=== PATIENT | male | born 1940 | race Caucasian/White ===

== ENCOUNTER 2017-05-11 00:57 | Day surgery (SDC) | payer MEDICARE, OTHER ==
[~2017-05-11] VITALS: Ht 185.4 cm; Wt 90.3 kg
[~2017-05-11 00:57] MED LIST: ASCO-182 PO; ASPI-663 PO; ATOR10TA65 PO; AZIT-1 PO; CALC-515 PO; CALC625T80 PO; CHOL10005 PO; CIP500 PO; DOC100 PO; FLU60SYR30 IM ONLY; GOLYTE PO; IBUP-1687 PO; LOR5 PO; LOR75 PO; MULT-28 PO; NIT100 PO; OMEG500C7 PO; PER PO; PHENA200 PO; PNEI IJ; PNEU0.5D3 IM; PSYL0.5241 PO; TAM4 PO; ZINC50TA2 PO; [UNRECOGNIZED DRUG - CODE] PO
[2017-05-11 06:05] VITALS: BP 157/90
[2017-05-11] MEDS ORDERED: LIDOCAINE/SOD BICARB 8.4% SYR ID ONE (06:30)
[2017-05-11] MEDS ORDERED: MIDAZOLAM 2 MG/2 ML VIAL IVP PRN (06:30)
[2017-05-11] MEDS ORDERED: NORMOSOL R SOLN(*) 1000 ML BAG 1,000 ML IV PRN (06:30)
[2017-05-11] MEDS ORDERED: LIDOCAINE MPF 1% 5 ML VIAL ONE (07:18)
[2017-05-11] MEDS ORDERED: PROPOFOL EMUL(*) 10MG/ML 20 ML 40 ML ONE (07:18)
[2017-05-11 07:51] VITALS: BP 93/68
[2017-05-11 08:00] VITALS: BP 94/71
--- NOTE | 2017-05-11 08:04 | Short(Outpt) Discharge Summary ---
Discharge Summary Reason for Hosp/Final Diag: (1) Family history of malignant neoplasm of gastrointestinal tract Hospital Course & Plan: Colonoscopy with polypectomy x1 completed without problems. Departure Discharge to: Home, Self Care Discharge Instructions Home Meds Active Scripts Peg/Electrolytes (GOLYTELY SOLUTION) 4,000 Ml Soln, 1 GAL PO ONCE, #1 GAL 0 Refills Prov:NURY SINHA MD 03/29/17 Reported Medications Calcium Carbonate (TUMS) 200 Mg Tab.chew, 200 MG PO PRN, TAB.CHEW 05/04/17 Zinc Amino Acid Chelate (ZINC) 50 Mg Tablet, 50 MG PO PRN 05/04/17 Ascorbic Acid (VITAMIN C) 500 Mg Tablet, 500 MG PO PRN, TAB 05/04/17 Multivits,Ca,Min/Iron/FA/Lycop (Centrum Men's Tablet) 1 Each Tablet, 1 TAB PO WEEKLY 05/04/17 Cholecalciferol (Vitamin D3) (VITAMIN D3) 1,000 Unit Tablet, 1000 UNIT PO 3XW, TAB 05/04/17 Calcium Polycarbophil (FIBER TABS) 625 Mg Tablet, 625 MG PO BID 05/04/17 Ibuprofen (ADVIL) 200 Mg Tablet, 1 TAB PO TID Y for PAIN 06/05/14 Discontinued Reported Medications [place]-3 Fatty Acids (FISH OIL) 500 Mg Capsule, 500 MG PO DAILY, CAPSULE 07/25/15 Psyllium Husk (METAMUCIL) 0.52 Gm Capsule, 1 CAP PO, CAPSULE 06/05/14 Diet: Regular Activity: As Tolerated Special Instructions: Your colonoscopy was completed without any problems and your prep was excellent (Good Job!!). I removed a single small polyp from your colon. My office will call you in the next week to let you know what the polyp is but, in any case, I recommend 1 more colonoscopy in 5 years for screening. NURY SINHA MD May 11, 2017 08:04
[2017-05-11 08:30] VITALS: BP 119/85
[2017-05-11 08:31] VITALS: BP 126/82
== END 2017-05-11 08:45 | disposition home or self-care (01) ==
LOC: OR 00:57
PROVIDERS: ATTEND Surgery
DX: Z12.11 Encounter for screening for malignant neoplasm of colon (principal); D12.5 Benign neoplasm of sigmoid colon; Z80.0 Family history of malignant neoplasm of digestive organs; K62.89 Other specified diseases of anus and rectum; K57.30 Diverticulosis of large intestine without perforation or abscess without bleeding
CPT/HCPCS: 00811; 45385; 88305; J2001; J2704

== ENCOUNTER 2017-08-16 10:55 | Outpatient (RCR) | payer MEDICARE, OTHER | END 2017-08-17 14:45 | disposition home or self-care (01) | LOC: RAON 10:55 | PROVIDERS: ATTEND Radiology Radiation Oncology | DX: C61 Malignant neoplasm of prostate (principal) | CPT/HCPCS: 99212 ==